=== PATIENT | male | born 1975 | race Caucasian/White ===

== ENCOUNTER 2018-08-14 12:32 | Inpatient (IN) | payer OTHER ==
[~2018-08-14] VITALS: Ht 172.7 cm; Wt 65.0 kg
[2018-08-14] VITALS (7 sets, daily range): BP systolic 124–143; BP diastolic 78–91
--- NOTE | ~2018-08-14 | EKG ---
[place], [place] ELECTROCARDIOGRAM REPORT NAME: JUAN ALBERTO BARBER UNIT #: [id number] ROOM: 529 DOCTOR: DAVID DRAFT REPORT BIRTHDATE: [birth year] [facility] Test Date: 2018-08-14 Test Time: 13:08:43 Pat Name: JUAN ALBERTO BARBER Department: Room: 529 Gender: M Title Abstractor: Helga Swenson : 1975 Requested By: TAMMY WILKES PA-C Order Number: [id number] Reading MD: Andrew Palacios MD Measurements Intervals [place] Rate: 44 P: 25 MS: 150 QRS: 53 QRSD: 95 T: 62 QT: 456 QTc: 390 Interpretive Statements Sinus bradycardia No previous ECG available for comparison Electronically Signed On 08-15-2018 4:01:05 PST by Andrew Palacios MD CM:EKGRPT:ELECTROCARDIOGRAM REPORT 1308 0401 TAMMY HERNANDEZ DRAFT REPORT TAMMY WILKES PA-C
--- NOTE | ~2018-08-14 | EKG ---
[place], [place] ELECTROCARDIOGRAM REPORT NAME: JUAN ALBERTO BARBER UNIT #: [id number] ROOM: 529 DOCTOR: DAVID DRAFT REPORT BIRTHDATE: [birth year] [facility] Test Date: 2018-08-15 Test Time: 09:13:37 Pat Name: JUAN ALBERTO BARBER Department: Room: 529 1 Gender: M Brush Painter: Ashley Souza : 1975 Requested By: EUSEBIO ALLAN Order Number: [id number] Reading MD: Sonal Max MD Measurements Intervals [place] Rate: 51 P: 48 NH: 151 QRS: 68 QRSD: 94 T: 64 QT: 444 QTc: 409 Interpretive Statements Sinus bradycardia Compared to ECG 08/14/2018 13:08:43 Sinus bradycardia no longer present Electronically Signed On 08-15-2018 17:02:40 PST by Sonal Max MD CM:EKGRPT:ELECTROCARDIOGRAM REPORT 0913 1702 EUSEBIO CUNNINGHAM DRAFT REPORT EUSEBIO ALLAN DO
[2018-08-14 13:46] LABS: BASO % 0.4 % (0.0-1.0); EOS % 0.3 % (1.0-4.0); HEMATOCRIT 46.9 % (42.0-52.0); HEMOGLOBIN 16.2 g/dl (14.0-18.0); LYMPH # 2.1 10*3/uL (1.3-4.4); LYMPH % 19.4 % (27.0-41.0); MEAN CELL VOLUME 93.2 fl (80.0-94.0); MEAN CORPUSCULAR HGB 32.2 pg (27.0-31.0); MEAN CORPUSCULAR HGB CONC 34.5 g/dl (33.0-37.0); MEAN PLATELET VOLUME 11.7 fl (9.6-12.3); MONO # 0.5 10*3/uL (0.1-1.0); MONO % 4.6 % (3.0-9.0); NEUT % 74.8 % (47.0-73.0); PLATELET COUNT AUTOMATED 194 10*3/uL (130-400); RED BLOOD COUNT 5.03 10*6/uL (4.50-5.90); RED CELL DISTRI WIDTH 13.2 % (0-14.5); WHITE BLOOD COUNT 10.7 10*3/uL (4.8-10.8)
[2018-08-14 13:54] LABS: INTERNATIONAL NORM RATIO 1.1 (2.0-3.5)
[2018-08-14 14:09] LABS: ALBUMIN 3.7 gm/dl (3.1-4.5); ALKALINE PHOSPHATASE 77 U/L (45-117); BUN 13 mg/dl (7-24); CHLORIDE 105 mmol/L (98-107); CREATININE 0.91 mg/dL (0.70-1.30); POTASSIUM 3.7 mmol/L (3.5-5.1); SGOT/AST 15 IU/L (3-35); SGPT/ALT 25 U/L (12-78); SODIUM 139 mmol/L (136-145); TOTAL PROTEIN 7.5 gm/dL (6.4-8.2)
[2018-08-14 14:10] LABS: TROPONIN I < 0.015 ng/ml (<0.045)
[2018-08-14 15:48] LABS: URINE AMPHETAMINES < 1000 (1000ng/ml); URINE BARBITURATES < 200 (200ng/ml); URINE BENZODIAZEPINES < 200 (200ng/ml); URINE CANNABINOIDS (THC) > 50 (50ng/ml); URINE COCAINE < 300 (300ng/ml); URINE METHADONE < 300 (300ng/ml); URINE OPIATES < 300 (300ng/ml)
[2018-08-14 15:49] LABS: BILIRUBIN NEGATIVE (NEGATIVE); BLOOD NEGATIVE (NEGATIVE); CLARITY CLEAR (CLEAR); COLOR YELLOW (YELLOW); GLUCOSE NEGATIVE (NEGATIVE); KETONE 2+ (NEGATIVE); LEUKO ESTERASE NEGATIVE (NEGATIVE); NITRITE NEGATIVE (NEGATIVE); PH 7.5 (5.0-9.0)
[2018-08-14 15:52] LABS: URINE PHENCYCLIDINE < 25 (25ng/ml)
[2018-08-14 15:58] LABS: BACTERIA TRACE; EPITHELIAL CELLS 0-2
[2018-08-15] VITALS: BP 122/80
[2018-08-15 06:26] LABS: BASO % 0.5 % (0.0-1.0); EOS # 0.1 10*3/uL (0.0-0.4); EOS % 0.6 % (1.0-4.0); HEMOGLOBIN 15.4 g/dl (14.0-18.0); LYMPH # 3.1 10*3/uL (1.3-4.4); LYMPH % 35.4 % (27.0-41.0); MEAN CELL VOLUME 94.1 fl (80.0-94.0); MEAN CORPUSCULAR HGB 32.2 pg (27.0-31.0); MEAN CORPUSCULAR HGB CONC 34.2 g/dl (33.0-37.0); MEAN PLATELET VOLUME 11.1 fl (9.6-12.3); MONO # 0.5 10*3/uL (0.1-1.0); MONO % 5.4 % (3.0-9.0); NEUT % 57.5 % (47.0-73.0); PLATELET COUNT AUTOMATED 185 10*3/uL (130-400); RED BLOOD COUNT 4.78 10*6/uL (4.50-5.90); RED CELL DISTRI WIDTH 13.2 % (0-14.5); WHITE BLOOD COUNT 8.7 10*3/uL (4.8-10.8)
[2018-08-15 06:53] LABS: ALBUMIN 3.5 gm/dl (3.1-4.5); ALKALINE PHOSPHATASE 65 U/L (45-117); BUN 11 mg/dl (7-24); CHLORIDE 108 mmol/L (98-107); CHOLESTEROL 143 mg/dL (<200); CREATININE 0.82 mg/dL (0.70-1.30); HDL CHOLESTEROL 28 mg/dl (40-60); LDL CHOLESTEROL 78 mg/dL (9-159); PHOSPHOROUS 1.7 mg/dL (2.5-4.9); SGOT/AST 13 IU/L (3-35); SGPT/ALT 24 U/L (12-78); SODIUM 139 mmol/L (136-145); TOTAL PROTEIN 6.9 gm/dL (6.4-8.2); TRIGLYCERIDES 187 mg/dl (<150); VLDL CHOLESTEROL 37 mg/dL (6-40)
[2018-08-15 07:26] LABS: VITAMIN D, 25-HYDROXY 13.2 ng/mL (30-100)
[2018-08-15 08:00] VITALS: BP 120/76; BP 128/82
[2018-08-15 12:00] VITALS: BP 132/78
[2018-08-15] MEDS ORDERED: NATURE'S BLEND F1 MG PO (12:52)
[2018-08-15] MEDS ORDERED: VITAMIN D32000 UNI1 PO (12:52)
== END 2018-08-15 13:36 | disposition home or self-care (01) | DRG 149 ==
LOC: ED 12:32 → EDHOLD 15:31 → 5E 15:31
PROVIDERS: Internal Medicine; Physician Assistant; ADMIT Emergency Medicine
DX: R42 Dizziness and giddiness (principal); R00.1 Bradycardia, unspecified; E86.0 Dehydration; E80.6 Other disorders of bilirubin metabolism; E83.41 Hypermagnesemia; R73.9 Hyperglycemia, unspecified; R82.71 Bacteriuria; F12.90 Cannabis use, unspecified, uncomplicated; E83.51 Hypocalcemia; Z82.49 Family history of ischemic heart disease and other diseases of the circulatory system

== ENCOUNTER 2021-08-02 14:19 | Emergency (ER) | payer OTHER ==
[~2021-08-02] VITALS: Ht 170.1 cm; Wt 65.8 kg
[~2021-08-02 14:19] MED LIST: NATURE'S BLEND F1 MG PO; VITAMIN D32000 UNI1 PO
[2021-08-02 14:24] VITALS: BP 154/93
[2021-08-02] MEDS ORDERED: Motrin,Rufen800 MG PO (14:46)
== END 2021-08-02 14:51 | disposition home or self-care (01) ==
LOC: ED 14:19
DX: K40.90 Unilateral inguinal hernia, without obstruction or gangrene, not specified as recurrent (principal)